=== PATIENT | male | born 1990 | race Caucasian/White ===

== ENCOUNTER 2022-05-11 20:46 | Emergency (ER) | payer OTHER ==
[~2022-05-11] VITALS: Ht 182.9 cm; Wt 74.8 kg
[~2022-05-11 20:46] MED LIST: ALBU90OI INH; CEPH500 PO; CODGUAEL PO; CRUTCH2 USE; CYCL10 PO; ERYT.5TO BOTHEYES; IBUP600 PO; IBUP800 PO; OXYACE5T PO; Percocet 5-3251 EACH PO; RXOXYACE PO; TRAM50 PO; Vibramycin100 MG PO
[2022-05-11] MEDS ORDERED: CYCL10 PO (23:42)
== END 2022-05-12 00:05 | disposition home or self-care (01) ==
LOC: ER 20:46
DX: M54.50 Low back pain, unspecified (principal); F17.210 Nicotine dependence, cigarettes, uncomplicated
CPT/HCPCS: A9270; J1885

== ENCOUNTER 2022-09-22 23:29 | Emergency (ER) | payer OTHER ==
[~2022-09-22] VITALS: Ht 182.9 cm; Wt 72.6 kg
[2022-09-23 04:49] VITALS: BP 136/89
== END 2022-09-23 04:53 | disposition home or self-care (01) ==
LOC: ER 23:29
DX: S91.331A Puncture wound without foreign body, right foot, initial encounter (principal); W22.8XXA Striking against or struck by other objects, initial encounter; F17.210 Nicotine dependence, cigarettes, uncomplicated
CPT/HCPCS: 73630; 90471; 90714; 90715; 96372; 99283-25; J0690